=== PATIENT | female | born 1985 | race Two or more races ===

== ENCOUNTER 2024-03-01 12:02 | Observation (INO) | payer MEDICAID, OTHER | END 2024-03-01 15:13 | disposition home or self-care (01) | LOC: LDRP 12:02 → UNDOADMOB 12:02 → LDRP 12:11 | PROVIDERS: ADMIT Obstetrics & Gynecology; ATTEND Obstetrics & Gynecology | DX: O36.8130 Decreased fetal movements, third trimester, not applicable or unspecified (principal); Z3A.38 38 weeks gestation of pregnancy | CPT/HCPCS: 59025; 76818; 81002; 94760; G0378 ==

== ENCOUNTER 2024-03-03 07:15 | Inpatient (IN) | payer MEDICAID ==
[~2024-03-03] VITALS: Ht 162.6 cm; Wt 77.1 kg
[2024-03-03] MEDS ORDERED: BUTORPHANOL TARTRATE 2 MG/1 ML VIAL IV PRN ×2 (07:45)
[2024-03-03] MEDS ORDERED: LIDOCAINE 2%HCL (LOCAL ANESTH.) INJ 20ML MDV IJ PRN (07:45)
[2024-03-03] MEDS ORDERED: WITCH HAZEL-GLYCERIN PAD TOP PRN (07:45)
[2024-03-03] MEDS ORDERED: PHISODERM TOP SOLN 240ML BTL TOP PRN (07:45)
[2024-03-03] MEDS ORDERED: DERMOPLAST 60ML BOTTLE TOP PRN (07:45)
[2024-03-03] MEDS ORDERED: LACTATED RINGER'S 1,000 ML IV SCH (07:45)
[2024-03-03] MEDS ORDERED: LACT. RINGERS/OXYTOCIN 20UNITS 500 ML IV ONE (08:30)
[2024-03-03 08:34] LABS: Basophils # (auto) 0.1 10 ^3/uL (0-0.2); Eosinophils # (auto) 0.1 10 ^3/uL (0-0.8); Eosinophils % (auto) 1.5 % (0.0-7.0); Hematocrit 37.5 % (36.0-46.0); Hemoglobin 12.9 g/dL (12.2-16.2); Lymphocytes # (auto) 1.5 10 ^3/uL (0.4-5.4); Lymphocytes % (auto) 23.9 % (10.0-50.0); Mean Corpuscular Hemoglobin 32.7 pg (28.0-32.0); Mean Corpuscular Hgb Conc. 34.5 g/dL (32.0-36.0); Mean Corpuscular Volume 94.7 fL (80.0-100.0); Monocytes # (auto) 0.5 10 ^3/uL (0-1.3); Monocytes % (auto) 8.2 % (0.0-12.0); Neutrophils % (auto) 65.4 % (37.0-80.0); Red Blood Cells 3.96 10^6/uL (4.0-5.20); Red Cell Distribution Width 14.4 % (11.8-14.3); White Blood Cell 6.1 10^3/uL (4.4-10.8)
[2024-03-03 08:48] LABS: Alanine Aminotransferase 27 U/L (7-40); Alkaline Phosphatase 242 U/L (46-116); Anion Gap 10 (5-15); Aspartate Aminotransferase 25 U/L (13-40); BUN/Creatinine Ratio 11.5 (10.0-20.0); Blood Urea Nitrogen 6 mg/dL (9-23); Calcium 9.1 mg/dL (8.7-10.4); Carbon Dioxide 19 mmol/L (20-30); Chloride 108 mmol/L (98-107); Glucose 82 mg/dL (74-106); Potassium 3.6 mmol/L (3.5-5.1); Sodium 137 mmol/L (136-145)
[2024-03-03 08:49] LABS: Albumin 3.6 g/dL (3.2-4.8); Bilirubin, Total 1.2 mg/dL (0.2-1.0); Total Protein 6.3 g/dL (5.7-8.2)
[2024-03-03 09:07] LABS: INR 0.94 (0.9-1.15); Partial Thromboplastin Time 26.5 SEC (24.5-34.5)
[2024-03-03 09:11] LABS: Amphetamine Screen, Urine Neg (NEGATIVE)
[2024-03-03 09:12] LABS: Barbiturate Scree,Urine Neg (NEGATIVE); Benzodiazephine Screen, Urine Neg (NEGATIVE); Cocaine Screen, Urine Neg (NEGATIVE); Opiate Scree,Urine Neg (NEGATIVE); Phencyclidine Screen, Urine Neg (NEGATIVE)
[2024-03-03 09:13] LABS: Cannabinoid Screen, Urine Neg (NEGATIVE)
[2024-03-03] MEDS ORDERED: LACT. RINGERS/OXYTOCIN 20UNITS 1,000 ML IV SCH (09:30)
[2024-03-03] MEDS ORDERED: TERBUTALINE SULFATE 1 MG/ML 1ML VIAL SC PRN (09:30)
[2024-03-03] MEDS: fentaNYL CITRATE 100 MCG/2 ML VL IV STA (10:04)
[2024-03-03] MEDS: miSOPROStol 100 mcg TAB SL PRN (12:22)
[2024-03-03] MEDS: METHYLERGONOVINE MALEATE 0.2 MG/ML AMP IM PRN (12:24)
[2024-03-03] MEDS: miSOPROStol 100 mcg TAB ONE (12:27)
[2024-03-03] MEDS: LACT. RINGERS/OXYTOCIN 20UNITS 500 ML IV ONE (12:31)
[2024-03-03] MEDS ORDERED: ACETAMINOPHEN 325 MG TAB PO PRN (16:45)
[2024-03-03] MEDS ORDERED: IBUPROFEN 600 MG TAB PO PRN (16:45)
[2024-03-03] MEDS ORDERED: ONDANSETRON ODT 4 MG TAB PO PRN (16:45)
[2024-03-03 19:00] VITALS: BP 101/52; PULSE 82; RESP 14; TEMP 98.1; O2SAT 95
[2024-03-03] MEDS: DOCUSATE SOD 100 MG CAP PO SCH (22:10)
[2024-03-03 23:00] VITALS: BP 108/53; PULSE 82; RESP 14; TEMP 98.2; O2SAT 100
[2024-03-04 03:00] VITALS: BP 100/59; PULSE 68; RESP 16; TEMP 98.4; O2SAT 96
[2024-03-04 06:51] VITALS: BP 110/56; PULSE 60; RESP 17; TEMP 97.9; O2SAT 98
[2024-03-04 08:06] LABS: RPR Non Reactive (Non Reactive)
[2024-03-04 11:30] VITALS: BP 99/59; PULSE 62; RESP 18; TEMP 97.8; O2SAT 98
[2024-03-06 18:06] LABS: Treponema pallidum Ab (FTA-Ab) Non Reactive (Non Reactive)
== END 2024-03-04 14:10 | disposition home or self-care (01) | DRG 560 ==
LOC: LDRP 07:15 → OBSVTOIN 07:40
PROVIDERS: ADMIT Obstetrics & Gynecology; ATTEND Obstetrics & Gynecology
PROC: 10E0XZZ Delivery of Products of Conception, External Approach (ICD-10-PCS; principal; 2024-03-03)
DX: O69.81X0 Labor and delivery complicated by cord around neck, without compression, not applicable or unspecified (principal); Z37.0 Single live birth; Z3A.38 38 weeks gestation of pregnancy
CPT/HCPCS: 36415; 59025; 59409; 80053; 80307; 81002; 85025; 85610; 85730; 86592; 86803; 86850; 86900; 86901; 94760; 96360; 96361; 96365; 96366; 96372; G0378; J2590